=== PATIENT | female | born 1960 | race Caucasian/White ===

== ENCOUNTER → 2023-03-20 | Outpatient (CLI) | payer OTHER ==
--- NOTE | 2023-03-20 10:20 | Diagnostic Imaging Report ---
INDICATION: Chronic left knee pain TECHNIQUE: 4 views of the left knee CORRELATION STUDY: None FINDINGS: The joint spaces are minimally narrowed. The articular surfaces are smooth and preserved. Patellofemoral alignment unremarkable. There is no acute bony abnormality. Soft tissues are unremarkable. IMPRESSION: 1. Negative for acute bony abnormality of the knee. Dictated by: Dictated on workstation # [id number]
== END ==
LOC: ORTHO 10:00
PROVIDERS: ATTEND Orthopaedic Surgery
DX: M25.562 Pain in left knee (principal)
CPT/HCPCS: 73564; 99203

== ENCOUNTER → 2023-05-23 | Outpatient (CLI) | payer OTHER | LOC: ORTHO 10:43 | PROVIDERS: ATTEND Orthopaedic Surgery | DX: S83.242D Other tear of medial meniscus, current injury, left knee, subsequent encounter (principal); X58.XXXD Exposure to other specified factors, subsequent encounter | CPT/HCPCS: 99213 ==

== ENCOUNTER 2023-06-10 05:28 | Outpatient (CLI) | payer OTHER ==
[~2023-06-10] VITALS: Ht 157.5 cm; Wt 84.1 kg
[2023-06-10] MEDS ORDERED: SIMV80TA21 PO (13:37)
[2023-06-10] MEDS ORDERED: TUME1CAP PO (13:37)
[2023-06-10] MEDS ORDERED: GLUC100016 PO (13:37)
[2023-06-10] MEDS ORDERED: LISI20TA26 PO (13:37)
[2023-06-10] MEDS ORDERED: [UNRECOGNIZED DRUG - CODE] MC (13:37)
[2023-06-10] MEDS ORDERED: MAGN250C PO (13:37)
[2023-06-10] MEDS ORDERED: CHOL1LIQ MC (13:37)
[2023-06-10] MEDS ORDERED: TURM1POW MC (13:37)
[2023-06-10] MEDS ORDERED: MELO7.5T46 PO (13:37)
[2023-06-10] MEDS ORDERED: ASPI-999 PO (13:37)
[2023-06-10] MEDS ORDERED: ACET325C7 PO (13:37)
[2023-06-10] MEDS ORDERED: FLUT9.9S NS (13:37)
[2023-06-10] MEDS ORDERED: CALC-308 PO (13:37)
== END 2023-06-12 15:48 | disposition home or self-care (01) ==
LOC: PREOP 05:28
PROVIDERS: ATTEND Orthopaedic Surgery
DX: Z01.818 Encounter for other preprocedural examination (principal)

== ENCOUNTER 2023-06-17 07:44 | Day surgery (SDC) | payer OTHER ==
[2023-06-17] VITALS (13 sets, daily range): BP systolic 140–159; BP diastolic 69–82
[~2023-06-17] VITALS: Ht 157.5 cm; Wt 84.1 kg
[~2023-06-17 07:44] MED LIST: ACET325C7 PO; ASPI-999 PO; CALC-308 PO; CHOL1LIQ MC; FLUT9.9S NS; GLUC100016 PO; LISI20TA26 PO; MAGN250C PO; MELO7.5T46 PO; SIMV80TA21 PO; TUME1CAP PO; TURM1POW MC; [UNRECOGNIZED DRUG - CODE] MC
[2023-06-17] MEDS ORDERED: CLINDAMYCIN 600 MG/50 ML IVPB 50 ML IV ONE (08:00)
[2023-06-17] MEDS: LACTATED RINGERS 1,000 ML 1,000 ML IV PRN ×2 (08:38→10:11)
[2023-06-17] MEDS ORDERED: ONDANSETRON INJECTION 4 MG/2 ML (SDV) IV ONE (09:00)
[2023-06-17] MEDS ORDERED: SCOPOLAMINE 1.5 MG PATCH TOP ONE (09:00)
[2023-06-17] MEDS ORDERED: FAMOTIDINE INJ 20MG/2ML VIAL IV ONE (09:00)
--- NOTE | 2023-06-17 09:32 | Progress Note-Pre Operative ---
Pre-Operative Progress Note Date of Available H&P: May 23, 2023 Date H&P Reviewed: Jun 17, 2023 Time H&P Reviewed: 09:25 History & Physical: H&P Reviewed, Patient Examed, No changes noted Pre-Operative Diagnosis: Left Knee Medial Meniscus Tear MARTÍN RAMESH MD Jun 17, 2023 09:32
[2023-06-17] MEDS ORDERED: LIDOCAINE 2% w/EPI 1:100,000 20 ML VIAL ONE (09:40)
[2023-06-17] MEDS ORDERED: LIDOCAINE PF 2% 5 ML VIAL ONE (09:43)
[2023-06-17] MEDS ORDERED: ONDANSETRON INJECTION 4 MG/2 ML (SDV) ONE (09:43)
[2023-06-17] MEDS ORDERED: proPOfol INJECTION 200 MG/20 ML VIAL IV ONE (09:43)
[2023-06-17] MEDS ORDERED: dexAMETHasone INJ 10 MG/ML 1 ML VIAL ONE (09:43)
[2023-06-17] MEDS ORDERED: fentaNYL INJECTION 100 MCG/2 ML VIAL ONE ×2 (09:43→10:53)
[2023-06-17] MEDS ORDERED: SEVOFLURANE (ULTANE) 15 ML INHAL SOLN ONE (10:22)
--- NOTE | 2023-06-17 10:41 | Operative Report - Ortho ---
Operative Report Surgeon (s)/Gas Distribution And Emergency Clerk (s) Surgeon MARTÍN RAMESH MD Gas Distribution And Emergency Clerk n/a Pre-Operative Diagnosis Left Knee Medial Meniscus Tear Post-Operative Diagnosis same Operative Report Date of Procedure: Jun 17, 2023 Name of Procedure Performed: Left Knee Arthroscopy with Partial Medial Meniscectomy Description & Findings After obtaining informed consent and marking the patient in the preoperative holding area, the patient was administered IV antibiotics and taken to the operating room. General anesthesia was induced. The right lower extremity was placed in the well leg manuel and the left leg was placed in the arthroscopic manuel. Surgical timeout was taken. The left lower extremity was prepped and draped in the usual sterile fashion. An anterolateral portal was established and a diagnostic knee arthroscopy was performed with the following findings: the patellofemoral portion of the joint demonstrated grade II change, the patella tracked well through the trochlear groove, the gutters were free of loose bodies, the medial meniscus demonstrated a complex tear of the posterior horn, grade II change in the medial compartment, ACL demonstrated a partial tear, lateral compartment was with intact lateral meniscus and grade II articular cartilage change. An anteromedial portal was established. Probe was inserted and the meniscal tear was explored. Basket biter was inserted the tear was grossly debrided. Shaver was inserted and the meniscal tear was debrided to a stable border. Probe was reinserted and confirmed that the area of mensicectomy was stable. Instruments were withdrawn. Wounds were closed with 3-0 nylon and dressed with xeroform, 4x4s, ABD, cast padding, and BRENDA wrap. Patient tolerated the procedure well and was stable to the recovery room. Anesthesia Type General Estimated Blood Loss minimal Specimen(s) collected/removed None MARTÍN RAMESH MD Jun 17, 2023 10:41
[2023-06-17] MEDS ORDERED: OXC5T PO (10:43)
[2023-06-17] MEDS ORDERED: fentaNYL INJECTION 100 MCG/2 ML VIAL IVP ONE (11:00)
[2023-06-17] MEDS ORDERED: ONDANSETRON INJECTION 4 MG/2 ML (SDV) IVP PRN (11:00)
--- NOTE | 2023-06-17 11:16 | Anesthesia-General Post-Op ---
General Patient Condition Mental Status/LOC: Same as Preop Cardiovascular: Satisfactory Nausea/Vomiting: Absent Respiratory: Satisfactory Pain: Controlled Complications: Absent Post Op Complications Complications None Follow Up Care/Instructions Patient Instructions None needed. Anesthesia/Patient Condition Patient Condition Patient is doing well, no complaints, stable vital signs, no apparent adverse anesthesia problems. No complications reported per nursing. HERNANDO XAVIER CRNA Jun 17, 2023 11:16
[2023-06-17] MEDS ORDERED: oxyCODONE IMMEDIATE RELEASE 5 MG TABLET PO ONE (12:00)
== END 2023-06-17 13:34 | disposition home or self-care (01) ==
LOC: SDC 07:44
PROVIDERS: ATTEND Orthopaedic Surgery
DX: S83.242A Other tear of medial meniscus, current injury, left knee, initial encounter (principal); E66.9 Obesity, unspecified; Z68.33 Body mass index [BMI] 33.0-33.9, adult
CPT/HCPCS: 87081

== ENCOUNTER → 2023-06-27 | Outpatient (CLI) | payer OTHER ==
[~2023-06-27] MED LIST changes: +OXC5T PO
== END ==
LOC: ORTHO 09:01
PROVIDERS: ATTEND Orthopaedic Surgery
DX: Z47.89 Encounter for other orthopedic aftercare (principal)